=== PATIENT | male | born 1960 | race Caucasian/White ===

== ENCOUNTER 2017-04-04 14:56 | Emergency (ER) | payer BC ==
[~2017-04-04] VITALS: Ht 172.7 cm; Wt 99.1 kg
[~2017-04-04 14:56] MED LIST: ASPIRIN 81M81 MG/TA2 PO; CHOLESTEROL MED; EFFIENT10 MG PO; LIPITOR 80MG80 MG PO; LOPRESSOR 225 MG/TAB PO; METHOTREXA2.5 MG/TAB PO; NITROSTAT0.4 MG/TAB SL; PEN-VEE K500 MG PO; PEPCID 20MG TAB20 MG PO; TOPROL XL 25MG25 MG PO; TOPROL XL 50MG50 MG PO; ZESTRIL2.5 MG PO; ZOCOR 80MG80 MG PO; [UNRECOGNIZED DRUG - OTHER]
[2017-04-04 15:03] VITALS: TEMP 97.9
[2017-04-04 15:33] LABS: PH 6 (5-8); SQUAMOUS EPITHELIAL None Seen /hpf; URINE APPEARANCE Clear; URINE BACTERIA None Seen /hpf; URINE BILIRUBIN Negative (NEGATIVE); URINE BLOOD Negative (NEGATIVE); URINE COLOR Straw; URINE GLUCOSE Negative (NEGATIVE); URINE KETONE Negative (NEGATIVE); URINE RBC None Seen /hpf; URINE UROBILINOGEN Negative (NEGATIVE); URINE WBC 0-2 /hpf
[2017-04-04 15:36] LABS: ANION GAP 11 mmol/L (7-16); BLOOD UREA NITROGEN 16 mg/dL (9-20); CALCIUM 9.3 mg/dL (8.4-10.2); CARBON DIOXIDE 24 mmol/L (22-30); CHLORIDE 108 mmol/L (98-107); CREATININE, serum 0.93 mg/dL (0.66-1.25); GLUCOSE 122 mg/dL (74-106); SODIUM 142 mmol/L (137-145)
[2017-04-04 15:38] LABS: BASO % 0.4 % (0.0-2.0); EOS # 0.1 (0.0-0.7); EOS % 2.1 % (0-4.0); GRAN # 4.9 (1.4-6.5); GRAN % 71.7 % (42.2-75.2); HEMATOCRIT 44.3 % (42.0-52.0); HEMOGLOBIN 14.9 g/dl (13.5-18.0); LYMPH # 1.3 (1.2-3.4); LYMPH % 18.6 % (20.0-51.0); MEAN CELL VOLUME 87 fl (80.0-100.0); MEAN CORPUSCULAR HEMOGLOBIN 29 pg (27.0-31.0); MEAN CORPUSCULAR HGB CONC 34 g/dl (33.0-37.0); MEAN PLATELET VOLUME 10.9 fl (7.4-10.4); MONO # 0.5 (0.1-0.6); MONO % 6.9 % (1.7-9.3); PLATELET COUNT 142 K/mm3 (130-400); RED BLOOD COUNT 5.08 M/mm3 (4.20-5.60); REDCELL DISTRIBUTION WIDTH-CV 13.8 % (11.5-14.5); WHITE BLOOD COUNT 6.8 K/mm3 (4.8-10.8)
[2017-04-04 15:49] LABS: TROPONIN-I < 0.012 ng/mL (0.000-0.034)
[2017-04-04 16:03] VITALS: BP 120/60
[2017-04-04 16:33] VITALS: PULSE 60
== END 2017-04-04 16:34 | disposition home or self-care (01) ==
LOC: COL.ER 14:56
PROVIDERS: Emergency Medicine
DX: R42 Dizziness and giddiness (principal); I10 Essential (primary) hypertension; E78.5 Hyperlipidemia, unspecified; I25.10 Atherosclerotic heart disease of native coronary artery without angina pectoris; I25.2 Old myocardial infarction; F17.290 Nicotine dependence, other tobacco product, uncomplicated; Z79.82 Long term (current) use of aspirin; Z95.9 Presence of cardiac and vascular implant and graft, unspecified; Z90.49 Acquired absence of other specified parts of digestive tract

== ENCOUNTER → 2017-04-19 | Outpatient (CLI) | payer BC | LOC: COL.CARD 12:58 | DX: R53.83 Other fatigue (principal); R00.2 Palpitations ==